=== PATIENT | male | born 1990 | race Caucasian/White ===

== ENCOUNTER → 2017-05-01 | Outpatient (CLI) | payer OTHER ==
[~2017-05-01] VITALS: Ht 170.2 cm; Wt 68.2 kg
[2017-05-01 14:49] VITALS: BP 148/93; PULSE 98; RESP 18; Ht 170.2 cm; Wt 68.2 kg
--- NOTE | 2017-05-01 15:58 | PN ---
Date/Time of Note Date/Time of Note DATE: 05/01/17 TIME: 15:45 Outpatient Progress Note Chief Complaint Chronic pain syndrome/right above-knee amputation/compartment syndrome/renal insufficiency/right hip pain/rash on left hand, HPI Chronic pain syndrome/patient has a chronic pain syndrome for many years, patient has been taking multiple medication, patient was off the medication, Right above-knee amputation/patient has recently right above-knee amputation, no problem with the stump, no ulcer or discharge, Compartment syndrome/patient has right leg compartment syndrome, patient is a patient, secondary to gangrene Renal insufficiency/no nausea vomiting or pruritus, Right hip pain/patient complained of right hip moderately severe pain, getting worse, Rash on the left hand/patient has a rash on her left hand, patient stated it was started after the IV at the hand and arm, no pain, Review of Systems Const: No Fever, no chills, no Wt. loss, no Fatigue, normal appetite, no diaphoresis. Eyes: No pain, no discharge, no redness, no visual change, no foreign body. ENT: No pain, no bleeding, no congestion, no sore throat, no dysphagia, no discharge or rhinitis. Lymph: No adenopathy, no tender nodes, no lymphedema. Resp: No SOB, no cough, no sputum, no wheezing, no chest pain. CV: No chest pain, no palpitaions, no WHITEHEAD, no PND, no edema. GI: Normal appetite, no pain, no nausea, no vomiting, no diarrhea, no blood, no constipation. : No frequency, no urgency, no dysuria, no hematuria, no flank pain, no discharge, no bleeding. Musc: no back pain, no neck pain, right hip pain, and right leg stump discomfort,, no restricted ROM. Skin: Patient has a left arm rash nonpainful, no itching,, no skin lesions, no erythema, no laceration, no bruising,, Neuro: No AWAD, no dizziness, no syncope, no seizure, no focal-weakness. Endo: No polyuria, no polydypsia, no dry-skin, no temp-intolerance. Psych: No hallucinations, no depression, no anxiety, no suicidal ideation. Ext: No edema, no pain, no ulcer, no weakness. Right hip pain and right leg pain, and phantom pain, Physical Exam Vital Signs Date Time Temp Pulse Resp B/P Pulse Ox O2 Delivery O2 Flow Rate FiO2 05/01/17 14:49 98.3 98 18 148/93 96 Room Air General Appearance: A 27 year-old male who appears well-developed, well- nourished, in no acute distress. HEENT: Head normocephalic, atraumatic. Pupils equal, round, reactive to light and accommodate. Sclerae are no jaundice. Nasal turbinates pink without erythema or nasal discharge. Mucous membranes pink and moist without lesions. Oropharynx clear without any exudate or discharge. NECK: Supple. Trachea midline, No thyromegaly, No cervical lymphadenopathy, No mass, No carotid bruits, No JVD, Carotid pulses 2+ bilaterally. PULMONARY: Clear to auscultaion bilaterally, No retractions, Chest expansion symmetric bilaterally, no rales, no ronchi, no dulness on percussion. CARDIAC: Normal SI and S2, Regular rate and rythm, no murmur, gallop, or rub. GASTROINTESTINAL: Abdomen is soft, non-tender, Non Rigid, No distention, Positive bowel sounds x4 quadrants, Liver normal. SKIN: Warm, dry, no left arm rash, no pain, no pruritus,, no bruise, no echmosis. EXTREMITIES: Bilateral lower extremities no edema, right AKA, no phlabitus, pulse palpable, no contracture. MUSCULOSKELETAL: Spine Normal, Non-tender, Normal range of motion, No swelling, no deformity, no clubbing, or cyanosis, the patient has no edema to left lower extremitie, right AKA NEUROLOGIC: The patient is awake, alert, oriented, responding to yes/no questions appropriately, moving all extremities, cranial nerve intact, normal strenght, normal power, normal coordination,, on the left side, left AKA, Allergies Coded Allergies: No Known Drug Allergies (Verified Allergy, Unknown, 05/01/17) PMH Chronic pain syndrome/right above-knee amputation/compartment syndrome/renal insufficiency/right hip pain/right hand rash/ Social Hx No smoking, patient had drank recently because of the pain, Family Hx Noncontributory Assessment/Plan Impression Chronic pain syndrome/right AKA/compartment syndrome resolved/renal insufficiency/right hip pain/rash left hand/ Plan Patient education done about medication and his disease, Patient is on to take not Patient wants some pain medication, will start Ultram 50 mg p.o. 3 times daily, only as needed, and sister or the family will control the medication, Patient will be given 50 Ultram, Plan to continue Soma as long as patient is getting physical therapy for muscle spasm, will give 15 tablet, Patient encouraged to continue physical therapy and acute rehab, Patient encouraged not to drink, Patient warned about fall precaution, Patient education done about her joints, and to avoid medication/drugs unless the pain is unbearable next Diabetes for repeated admission, and complication, Family to monitor for the medication, MRI right hip, also will get CBC CMP, Request to see about bilingual sales consultant, Patient to follow with the primary care physician, HARSH LOPEZ MD May 01, 2017 15:56
== END | disposition home or self-care (01) ==
LOC: DCC 14:38
PROVIDERS: ATTEND Internal Medicine
DX: G89.4 Chronic pain syndrome (principal); M79.A21 Nontraumatic compartment syndrome of right lower extremity; N28.9 Disorder of kidney and ureter, unspecified; M25.551 Pain in right hip; R21 Rash and other nonspecific skin eruption; Z89.611 Acquired absence of right leg above knee

== ENCOUNTER → 2017-07-30 | Outpatient (CLI) | END | disposition home or self-care (01) ==

== ENCOUNTER → 2017-09-08 | Outpatient (CLI) | END | disposition home or self-care (01) ==